=== PATIENT | female | born 2000 | race Two or more races ===

== ENCOUNTER 2022-04-09 23:33 | Emergency (ER) | payer OTHER ==
[~2022-04-09] VITALS: Ht 154.9 cm; Wt 46.7 kg
[2022-04-10] MEDS ORDERED: DOLOGESIC-DF 51 EACH PO (01:37)
== END 2022-04-10 01:52 ==
LOC: ER 23:33
DX: M79.631 Pain in right forearm (principal); Z88.6 Allergy status to analgesic agent